=== PATIENT | male | born 1955 | race Caucasian/White ===

== ENCOUNTER 2022-03-12 22:36 | Inpatient (IN) | payer OTHER ==
[~2022-03-12] VITALS: Ht 188 cm; Wt 72.1 kg
[2022-03-12 22:41] VITALS: BP 176/85
[2022-03-12] MEDS ORDERED: TYLENOL325 M2 PEG (22:50)
[2022-03-12] MEDS ORDERED: BACLOFEN5 MG PEG (22:52)
[2022-03-12] MEDS ORDERED: ARANESP60 MCG/0.3 IJ (22:53)
[2022-03-12] MEDS ORDERED: BISACODYL10 MG R (22:55)
[2022-03-12] MEDS ORDERED: FLEET ENEMA 13133 ML R (22:56)
[2022-03-12] MEDS ORDERED: PEPCID20 MG PEG (23:04)
[2022-03-12] MEDS ORDERED: MIRALAX119 GM PEG (23:05)
[2022-03-12] MEDS ORDERED: MILK OF MA400 MG/5 M PEG (23:06)
[2022-03-12] MEDS ORDERED: LOPRESSOR25 MG PEG (23:07)
[2022-03-12] MEDS ORDERED: MAG-OXIDE200 MG PEG (23:08)
[2022-03-12] MEDS ORDERED: LIPITOR40 MG PEG (23:09)
[2022-03-12] MEDS ORDERED: IRON325 M1 PO (23:09)
[2022-03-12] MEDS ORDERED: Ipratropium Brom3 ML INH (23:10)
[2022-03-12] MEDS ORDERED: Peridex 473 ML473 ML PO (23:11)
[2022-03-12] MEDS ORDERED: PHOSLYRA667 MG/51 PEG (23:12)
[2022-03-12] MEDS ORDERED: PROMETHAZINE-P118 ML PEG (23:14)
[2022-03-12] MEDS ORDERED: SENNA8.6 MG PEG (23:15)
[2022-03-12] MEDS ORDERED: REMERON30 M1 PEG (23:15)
[2022-03-12] MEDS ORDERED: SIMETHICONE80 MG PEG (23:17)
[2022-03-12] MEDS ORDERED: THERATEARS 15 M15 ML OPH (23:18)
[2022-03-12] MEDS ORDERED: WELLBUTRIN SR150 MG PEG (23:18)
[2022-03-13] VITALS (11 sets, daily range): BP systolic 94–135; BP diastolic 51–74
[2022-03-13 01:43] LABS: ALKALINE PHOSPHATASE 108 U/L (45-117); BUN 31 mg/dl (7-24); CHLORIDE 107 mmol/L (98-107); CREATININE 0.76 mg/dL (0.70-1.30); POTASSIUM 4.5 mmol/L (3.5-5.1); SGOT/AST 29 IU/L (3-35); SGPT/ALT 38 U/L (12-78); SODIUM 136 mmol/L (136-145); TOTAL PROTEIN 9.4 gm/dL (6.4-8.2)
[2022-03-13 01:56] LABS: BASO % 0.3 % (0.0-1.0); EOS % 0.1 % (1.0-4.0); LYMPH # 1.5 10*3/uL (1.3-4.4); LYMPH % 12.4 % (27.0-41.0); MEAN CELL VOLUME 90.9 fl (80.0-94.0); MEAN CORPUSCULAR HGB 27.5 pg (27.0-31.0); MEAN CORPUSCULAR HGB CONC 30.3 g/dl (33.0-37.0); MEAN PLATELET VOLUME 11.1 fl (9.6-12.3); MONO # 0.9 10*3/uL (0.1-1.0); NEUT # 9.7 10*3/uL (2.3-7.9); NEUT % 79.5 % (47.0-73.0); PLATELET COUNT AUTOMATED 405 10*3/uL (130-400); RED BLOOD COUNT 4.29 10*6/uL (4.50-5.90); RED CELL DISTRI WIDTH 21.6 % (0-14.5); WHITE BLOOD COUNT 12.2 10*3/uL (4.8-10.8)
[2022-03-13 02:23] LABS: BILIRUBIN Negative (Negative); BLOOD 2+ (Negative); CLARITY Cloudy (Clear); COLOR Yellow (Yellow); GLUCOSE Negative (Negative); KETONE Negative (Negative); LEUKO ESTERASE 2+ (Negative); NITRITE Negative (Negative); SPECIFIC GRAVITY 1.015 (1.001-1.030); UROBILINOGEN 0.2 E.U./dl (0.0-1.0)
[2022-03-13 02:30] LABS: BACTERIA 2+; RBC 16-20 rbc/hpf (0-2); WBC 41-50 wbc/hpf (0-5)
[2022-03-14] VITALS: BP 117/60
[2022-03-14 04:01] VITALS: BP 105/55
[2022-03-14 06:05] LABS: BUN 29 mg/dl (7-24); CHLORIDE 109 mmol/L (98-107); SODIUM 142 mmol/L (136-145)
[2022-03-14 06:14] LABS: ALKALINE PHOSPHATASE 102 U/L (45-117); CREATININE 0.71 mg/dL (0.70-1.30); FREE T4 1.67 ng/dl (0.76-1.46); SGOT/AST 23 IU/L (3-35); SGPT/ALT 30 U/L (12-78); TOTAL PROTEIN 8.8 gm/dL (6.4-8.2)
[2022-03-14 06:29] LABS: POTASSIUM 3.2 mmol/L (3.5-5.1)
[2022-03-14 06:30] LABS: BASO % 0.2 % (0.0-1.0); EOS # 0.2 10*3/uL (0.0-0.4); EOS % 1.7 % (1.0-4.0); HEMATOCRIT 36.9 % (42.0-52.0); LYMPH # 0.8 10*3/uL (1.3-4.4); LYMPH % 6.7 % (27.0-41.0); MEAN CELL VOLUME 92.9 fl (80.0-94.0); MEAN CORPUSCULAR HGB 27.2 pg (27.0-31.0); MEAN CORPUSCULAR HGB CONC 29.3 g/dl (33.0-37.0); MEAN PLATELET VOLUME 11.7 fl (9.6-12.3); MONO # 0.6 10*3/uL (0.1-1.0); MONO % 4.6 % (3.0-9.0); NEUT # 10.3 10*3/uL (2.3-7.9); NEUT % 86.3 % (47.0-73.0); PLATELET COUNT AUTOMATED 452 10*3/uL (130-400); RED BLOOD COUNT 3.97 10*6/uL (4.50-5.90); RED CELL DISTRI WIDTH 21.8 % (0-14.5); WHITE BLOOD COUNT 11.9 10*3/uL (4.8-10.8)
[2022-03-14 08:00] VITALS: BP 152/76
[2022-03-14 12:00] VITALS: BP 124/75
[2022-03-14 16:50] VITALS: BP 148/64
[2022-03-14 20:00] VITALS: BP 128/67
[2022-03-15] VITALS: BP 120/66
[2022-03-15 04:00] VITALS: BP 130/68
[2022-03-15 07:20] LABS: ALKALINE PHOSPHATASE 104 U/L (45-117); BUN 27 mg/dl (7-24); CHLORIDE 107 mmol/L (98-107); CREATININE 0.82 mg/dL (0.70-1.30); POTASSIUM 3.6 mmol/L (3.5-5.1); SGOT/AST 21 IU/L (3-35); SGPT/ALT 27 U/L (12-78); SODIUM 141 mmol/L (136-145); TOTAL PROTEIN 8.3 gm/dL (6.4-8.2)
[2022-03-15 07:22] LABS: BASO % 0.4 % (0.0-1.0); EOS # 0.6 10*3/uL (0.0-0.4); EOS % 7.3 % (1.0-4.0); HEMATOCRIT 34.6 % (42.0-52.0); LYMPH # 1.1 10*3/uL (1.3-4.4); LYMPH % 13.6 % (27.0-41.0); MEAN CELL VOLUME 90.3 fl (80.0-94.0); MEAN CORPUSCULAR HGB 27.7 pg (27.0-31.0); MEAN CORPUSCULAR HGB CONC 30.6 g/dl (33.0-37.0); MEAN PLATELET VOLUME 11.2 fl (9.6-12.3); MONO # 0.8 10*3/uL (0.1-1.0); MONO % 9.4 % (3.0-9.0); NEUT # 5.5 10*3/uL (2.3-7.9); NEUT % 68.4 % (47.0-73.0); RED BLOOD COUNT 3.83 10*6/uL (4.50-5.90); RED CELL DISTRI WIDTH 21.6 % (0-14.5)
[2022-03-15 07:35] LABS: PLATELET COUNT AUTOMATED 458 10*3/uL (130-400)
[2022-03-15 08:00] VITALS: BP 120/57
[2022-03-15 12:00] VITALS: BP 101/56
[2022-03-15 16:00] VITALS: BP 100/47
[2022-03-15] MEDS ORDERED: VANCOMYCIN HYDRO1 GM IV (17:32)
[2022-03-15] MEDS ORDERED: PREMIERPRO RX500 M2 IV (17:32)
[2022-03-15 20:00] VITALS: BP 127/57
[2022-03-16] VITALS: BP 113/56
[2022-03-16 04:00] VITALS: BP 104/56
[2022-03-16 06:28] LABS: BASO % 0.5 % (0.0-1.0); EOS # 0.7 10*3/uL (0.0-0.4); EOS % 8.7 % (1.0-4.0); HEMATOCRIT 35.1 % (42.0-52.0); LYMPH # 1.2 10*3/uL (1.3-4.4); LYMPH % 15.2 % (27.0-41.0); MEAN CELL VOLUME 89.8 fl (80.0-94.0); MEAN CORPUSCULAR HGB 27.6 pg (27.0-31.0); MEAN CORPUSCULAR HGB CONC 30.8 g/dl (33.0-37.0); MEAN PLATELET VOLUME 10.9 fl (9.6-12.3); MONO # 0.7 10*3/uL (0.1-1.0); MONO % 8.8 % (3.0-9.0); NEUT # 5.1 10*3/uL (2.3-7.9); NEUT % 65.6 % (47.0-73.0); PLATELET COUNT AUTOMATED 445 10*3/uL (130-400); RED BLOOD COUNT 3.91 10*6/uL (4.50-5.90); RED CELL DISTRI WIDTH 21.6 % (0-14.5); WHITE BLOOD COUNT 7.7 10*3/uL (4.8-10.8)
[2022-03-16 07:06] LABS: BUN 24 mg/dl (7-24); CHLORIDE 107 mmol/L (98-107); CREATININE 0.73 mg/dL (0.70-1.30); POTASSIUM 3.8 mmol/L (3.5-5.1); SODIUM 138 mmol/L (136-145)
[2022-03-16 08:00] VITALS: BP 123/60
[2022-03-16 12:00] VITALS: BP 109/59
[2022-03-16 16:00] VITALS: BP 98/54
[2022-03-16 20:00] VITALS: BP 108/54
[2022-03-17] VITALS: BP 105/55
[2022-03-17 04:00] VITALS: BP 102/58
[2022-03-17 05:22] LABS: ALKALINE PHOSPHATASE 112 U/L (45-117); BUN 23 mg/dl (7-24); CHLORIDE 110 mmol/L (98-107); POTASSIUM 4.4 mmol/L (3.5-5.1); SGOT/AST 44 IU/L (3-35); SGPT/ALT 33 U/L (12-78); SODIUM 139 mmol/L (136-145); TOTAL PROTEIN 8.9 gm/dL (6.4-8.2)
[2022-03-17 06:26] LABS: BASO # 0.1 10*3/uL (0.0-0.1); BASO % 0.7 % (0.0-1.0); EOS # 0.9 10*3/uL (0.0-0.4); HEMATOCRIT 37.5 % (42.0-52.0); LYMPH # 2.3 10*3/uL (1.3-4.4); LYMPH % 27.1 % (27.0-41.0); MEAN CORPUSCULAR HGB 27.2 pg (27.0-31.0); MEAN CORPUSCULAR HGB CONC 29.9 g/dl (33.0-37.0); MEAN PLATELET VOLUME 11.3 fl (9.6-12.3); MONO # 0.9 10*3/uL (0.1-1.0); NEUT # 4.1 10*3/uL (2.3-7.9); NEUT % 48.3 % (47.0-73.0); PLATELET COUNT AUTOMATED 462 10*3/uL (130-400); RED BLOOD COUNT 4.12 10*6/uL (4.50-5.90); RED CELL DISTRI WIDTH 21.3 % (0-14.5); WHITE BLOOD COUNT 8.4 10*3/uL (4.8-10.8)
[2022-03-17 08:00] VITALS: BP 93/48
[2022-03-17 12:00] VITALS: BP 104/68
[2022-03-17] MEDS ORDERED: PREMIERPRO RX500 M2 IV (14:33)
[2022-03-17] MEDS ORDERED: AMERINET CHOICE1 GM IV (14:33)
[2022-03-17 16:00] VITALS: BP 121/78
[2022-03-17 20:00] VITALS: BP 115/74
[2022-03-18] VITALS: BP 100/57
[2022-03-18 04:00] VITALS: BP 148/81
[2022-03-18 05:08] LABS: BUN 25 mg/dl (7-24); CHLORIDE 106 mmol/L (98-107); CREATININE 0.81 mg/dL (0.70-1.30); SODIUM 135 mmol/L (136-145)
[2022-03-18 06:02] LABS: BASO # 0.1 10*3/uL (0.0-0.1); BASO % 0.5 % (0.0-1.0); EOS # 1.1 10*3/uL (0.0-0.4); HEMATOCRIT 38.8 % (42.0-52.0); LYMPH # 2.5 10*3/uL (1.3-4.4); LYMPH % 20.2 % (27.0-41.0); MEAN CELL VOLUME 92.4 fl (80.0-94.0); MEAN CORPUSCULAR HGB 27.6 pg (27.0-31.0); MEAN CORPUSCULAR HGB CONC 29.9 g/dl (33.0-37.0); MEAN PLATELET VOLUME 11.6 fl (9.6-12.3); MONO # 0.9 10*3/uL (0.1-1.0); MONO % 7.6 % (3.0-9.0); NEUT # 7.5 10*3/uL (2.3-7.9); NEUT % 60.6 % (47.0-73.0); PLATELET COUNT AUTOMATED 480 10*3/uL (130-400); RED CELL DISTRI WIDTH 21.1 % (0-14.5); WHITE BLOOD COUNT 12.3 10*3/uL (4.8-10.8)
[2022-03-18 08:00] VITALS: BP 143/68
[2022-03-18 11:52] VITALS: BP 108/61
[2022-03-18 16:00] VITALS: BP 96/58
[2022-03-18 20:00] VITALS: BP 109/61
[2022-03-19] VITALS (8 sets, daily range): BP systolic 83–115; BP diastolic 44–59
[2022-03-19 05:30] LABS: BUN 29 mg/dl (7-24); CHLORIDE 106 mmol/L (98-107); CREATININE 0.91 mg/dL (0.70-1.30); SODIUM 136 mmol/L (136-145)
[2022-03-19 06:23] LABS: BASO # 0.1 10*3/uL (0.0-0.1); BASO % 0.7 % (0.0-1.0); EOS # 1.1 10*3/uL (0.0-0.4); EOS % 8.4 % (1.0-4.0); HEMATOCRIT 36.5 % (42.0-52.0); LYMPH # 2.5 10*3/uL (1.3-4.4); LYMPH % 19.3 % (27.0-41.0); MEAN CELL VOLUME 92.2 fl (80.0-94.0); MEAN CORPUSCULAR HGB 28.3 pg (27.0-31.0); MEAN CORPUSCULAR HGB CONC 30.7 g/dl (33.0-37.0); MEAN PLATELET VOLUME 11.6 fl (9.6-12.3); MONO # 0.8 10*3/uL (0.1-1.0); MONO % 6.2 % (3.0-9.0); NEUT # 8.3 10*3/uL (2.3-7.9); NEUT % 63.8 % (47.0-73.0); PLATELET COUNT AUTOMATED 455 10*3/uL (130-400); RED BLOOD COUNT 3.96 10*6/uL (4.50-5.90)
[2022-03-20 04:00] VITALS: BP 92/52
[2022-03-20 05:22] LABS: BUN 33 mg/dl (7-24); CHLORIDE 106 mmol/L (98-107); CREATININE 0.92 mg/dL (0.70-1.30); POTASSIUM 3.7 mmol/L (3.5-5.1); SODIUM 137 mmol/L (136-145)
[2022-03-20 06:19] LABS: BASO # 0.1 10*3/uL (0.0-0.1); BASO % 0.6 % (0.0-1.0); EOS # 1.2 10*3/uL (0.0-0.4); EOS % 8.3 % (1.0-4.0); HEMATOCRIT 36.7 % (42.0-52.0); LYMPH # 3.3 10*3/uL (1.3-4.4); LYMPH % 22.1 % (27.0-41.0); MEAN CELL VOLUME 91.5 fl (80.0-94.0); MEAN CORPUSCULAR HGB 28.2 pg (27.0-31.0); MEAN CORPUSCULAR HGB CONC 30.8 g/dl (33.0-37.0); MEAN PLATELET VOLUME 11.7 fl (9.6-12.3); MONO # 1.1 10*3/uL (0.1-1.0); MONO % 7.1 % (3.0-9.0); PLATELET COUNT AUTOMATED 488 10*3/uL (130-400); RED BLOOD COUNT 4.01 10*6/uL (4.50-5.90)
[2022-03-20 08:00] VITALS: BP 104/51
== END 2022-03-20 11:15 | DRG 981 ==
LOC: ED 22:36 → ICCU 03-13 07:48 → EDHOLD 03-13 07:48 → ICCU 03-13 09:16
PROVIDERS: Emergency Medicine; Internal Medicine; ADMIT Family Medicine; ATTEND Family Medicine
PROC: 5A1955Z Respiratory Ventilation, Greater than 96 Consecutive Hours (ICD-10-PCS; 2022-03-13)
PROC: 0QB10ZZ Excision of Sacrum, Open Approach (ICD-10-PCS; principal; 2022-03-14)
PROC: 0QB30ZZ Excision of Left Pelvic Bone, Open Approach (ICD-10-PCS; 2022-03-14)
PROC: 02HV33Z Insertion of Infusion Device into Superior Vena Cava, Percutaneous Approach (ICD-10-PCS; 2022-03-17)
PROC: B548ZZA Ultrasonography of Superior Vena Cava, Guidance (ICD-10-PCS; 2022-03-17)
DX: T83.511A Infection and inflammatory reaction due to indwelling urethral catheter, initial encounter (principal); A41.9 Sepsis, unspecified organism; L89.154 Pressure ulcer of sacral region, stage 4; J69.0 Pneumonitis due to inhalation of food and vomit; E43 Unspecified severe protein-calorie malnutrition; M46.28 Osteomyelitis of vertebra, sacral and sacrococcygeal region; J96.10 Chronic respiratory failure, unspecified whether with hypoxia or hypercapnia; J90 Pleural effusion, not elsewhere classified; N20.1 Calculus of ureter; Z99.11 Dependence on respirator [ventilator] status; N39.0 Urinary tract infection, site not specified; K27.9 Peptic ulcer, site unspecified, unspecified as acute or chronic, without hemorrhage or perforation; L89.150 Pressure ulcer of sacral region, unstageable; Z20.822 Contact with and (suspected) exposure to COVID-19; Y83.8 Other surgical procedures as the cause of abnormal reaction of the patient, or of later complication, without mention of misadventure at the time of the procedure; D64.9 Anemia, unspecified; N40.0 Benign prostatic hyperplasia without lower urinary tract symptoms; N31.9 Neuromuscular dysfunction of bladder, unspecified; D75.839 Thrombocytosis, unspecified; R73.9 Hyperglycemia, unspecified; E55.9 Vitamin D deficiency, unspecified; G35 Multiple sclerosis; E78.5 Hyperlipidemia, unspecified; N18.9 Chronic kidney disease, unspecified; I12.9 Hypertensive chronic kidney disease with stage 1 through stage 4 chronic kidney disease, or unspecified chronic kidney disease; F32.A Depression, unspecified; I25.10 Atherosclerotic heart disease of native coronary artery without angina pectoris; K21.9 Gastro-esophageal reflux disease without esophagitis; K62.89 Other specified diseases of anus and rectum; Y92.89 Other specified places as the place of occurrence of the external cause; Z93.0 Tracheostomy status; Z88.1 Allergy status to other antibiotic agents; Z88.8 Allergy status to other drugs, medicaments and biological substances; Z88.5 Allergy status to narcotic agent; Z79.1 Long term (current) use of non-steroidal anti-inflammatories (NSAID); Z79.899 Other long term (current) drug therapy; Z93.6 Other artificial openings of urinary tract status; Z82.0 Family history of epilepsy and other diseases of the nervous system

== ENCOUNTER 2022-04-25 02:27 | Emergency (ER) | payer OTHER ==
[~2022-04-25] VITALS: Ht 162.5 cm; Wt 68.0 kg
[~2022-04-25 02:27] MED LIST: AMERINET CHOICE1 GM IV; ARANESP60 MCG/0.3 IJ; BACLOFEN5 MG PEG; BISACODYL10 MG R; FLEET ENEMA 13133 ML R; IRON325 M1 PO; Ipratropium Brom3 ML INH; LIPITOR40 MG PEG; LOPRESSOR25 MG PEG; MAG-OXIDE200 MG PEG; MILK OF MA400 MG/5 M PEG; MIRALAX119 GM PEG; PEPCID20 MG PEG; PHOSLYRA667 MG/51 PEG; PREMIERPRO RX500 M2 IV; PROMETHAZINE-P118 ML PEG; Peridex 473 ML473 ML PO; REMERON30 M1 PEG; SENNA8.6 MG PEG; SIMETHICONE80 MG PEG; THERATEARS 15 M15 ML OPH; TYLENOL325 M2 PEG; VANCOMYCIN HYDRO1 GM IV; WELLBUTRIN SR150 MG PEG
[2022-04-25 02:59] LABS: HEMATOCRIT 41.1 % (42.0-52.0); MEAN CELL VOLUME 98.8 fl (80.0-94.0); MEAN CORPUSCULAR HGB 28.1 pg (27.0-31.0); MEAN CORPUSCULAR HGB CONC 28.5 g/dl (33.0-37.0); MEAN PLATELET VOLUME 11.6 fl (9.6-12.3); PLATELET COUNT AUTOMATED 273 10*3/uL (130-400); RED BLOOD COUNT 4.16 10*6/uL (4.50-5.90); RED CELL DISTRI WIDTH 19.8 % (0-14.5); WHITE BLOOD COUNT 31.7 10*3/uL (4.8-10.8)
[2022-04-25 03:00] LABS: MANUAL DIFF REFLEX YES
[2022-04-25 03:34] LABS: PLATELET SUFFICIENCY NORMAL (NORMAL); TOTAL CELLS COUNTED 100 #CELLS
[2022-04-25 03:45] LABS: ALKALINE PHOSPHATASE 149 U/L (45-117); BUN 49 mg/dl (7-24); CHLORIDE 100 mmol/L (98-107); CREATININE 0.78 mg/dL (0.70-1.30); LIPASE 419 U/L (73-393); POTASSIUM 5.8 mmol/L (3.5-5.1); SGOT/AST 39 IU/L (3-35); SGPT/ALT 78 U/L (12-78); SODIUM 138 mmol/L (136-145); TOTAL PROTEIN 9.3 gm/dL (6.4-8.2)
[2022-04-25 05:31] LABS: BILIRUBIN Negative (Negative); BLOOD 2+ (Negative); CLARITY Cloudy (Clear); COLOR Yellow (Yellow); GLUCOSE Negative (Negative); KETONE Negative (Negative); LEUKO ESTERASE 2+ (Negative); NITRITE Negative (Negative); SPECIFIC GRAVITY 1.015 (1.001-1.030); UROBILINOGEN 0.2 E.U./dl (0.0-1.0)
[2022-04-25 05:58] LABS: BACTERIA 1+; CALCIUM OXALATE CRYSTALS 2+; RBC TNTC rbc/hpf (0-2); WBC 21-30 wbc/hpf (0-5); YEAST 4+
== END 2022-04-25 10:39 | disposition short-term general hospital (02) ==
LOC: ED 02:27
PROVIDERS: Emergency Medicine
DX: A41.9 Sepsis, unspecified organism (principal); Z20.822 Contact with and (suspected) exposure to COVID-19; N39.0 Urinary tract infection, site not specified; J69.0 Pneumonitis due to inhalation of food and vomit; R41.82 Altered mental status, unspecified; N20.1 Calculus of ureter; Z88.1 Allergy status to other antibiotic agents; Z88.8 Allergy status to other drugs, medicaments and biological substances; Z79.899 Other long term (current) drug therapy

== ENCOUNTER 2022-07-05 12:53 | Emergency (ER) | payer OTHER, MEDICAID ==
[~2022-07-05] VITALS: Wt 72.1 kg
[2022-07-05 13:20] LABS: BILIRUBIN Negative (Negative); BLOOD 2+ (Negative); CLARITY Turbid (Clear); COLOR Yellow (Yellow); GLUCOSE Negative (Negative); KETONE Negative (Negative); LEUKO ESTERASE 3+ (Negative); NITRITE Negative (Negative); PH 6.5 (4.5-8.0); UROBILINOGEN 0.2 E.U./dl (0.0-1.0)
[2022-07-05 13:35] LABS: BASO % 0.3 % (0.0-1.0); EOS # 0.1 10*3/uL (0.0-0.4); EOS % 0.4 % (1.0-4.0); HEMATOCRIT 41.2 % (42.0-52.0); LYMPH # 1.6 10*3/uL (1.3-4.4); LYMPH % 11.5 % (27.0-41.0); MEAN CELL VOLUME 93.4 fl (80.0-94.0); MEAN CORPUSCULAR HGB 27.4 pg (27.0-31.0); MEAN CORPUSCULAR HGB CONC 29.4 g/dl (33.0-37.0); MEAN PLATELET VOLUME 11.5 fl (9.6-12.3); MONO # 0.9 10*3/uL (0.1-1.0); MONO % 6.1 % (3.0-9.0); NEUT # 11.5 10*3/uL (2.3-7.9); NEUT % 81.3 % (47.0-73.0); PLATELET COUNT AUTOMATED 513 10*3/uL (130-400); RED BLOOD COUNT 4.41 10*6/uL (4.50-5.90); RED CELL DISTRI WIDTH 18.6 % (0-14.5); WHITE BLOOD COUNT 14.2 10*3/uL (4.8-10.8)
[2022-07-05 13:41] LABS: BACTERIA 3+; WBC TNTC wbc/hpf (0-5)
[2022-07-05 13:52] LABS: ALKALINE PHOSPHATASE 106 U/L (45-117); BUN 43 mg/dl (7-24); CHLORIDE 102 mmol/L (98-107); CREATININE 0.95 mg/dL (0.70-1.30); POTASSIUM 4.1 mmol/L (3.5-5.1); SGOT/AST 24 IU/L (3-35); SGPT/ALT 39 U/L (12-78); SODIUM 136 mmol/L (136-145); TOTAL PROTEIN 10.6 gm/dL (6.4-8.2)
== END 2022-07-05 17:40 | disposition home or self-care (01) ==
LOC: ED 12:53
PROVIDERS: Internal Medicine
DX: N39.0 Urinary tract infection, site not specified (principal); Z88.1 Allergy status to other antibiotic agents; Z88.5 Allergy status to narcotic agent

== ENCOUNTER 2022-07-19 20:19 | Inpatient (IN) | payer OTHER, MEDICAID ==
[~2022-07-19] VITALS: Ht 167.6 cm; Wt 77.1 kg
[2022-07-19 20:42] VITALS: BP 108/73
[2022-07-19 21:02] LABS: HEMATOCRIT 42.3 % (42.0-52.0); MEAN CELL VOLUME 98.4 fl (80.0-94.0); MEAN CORPUSCULAR HGB 29.1 pg (27.0-31.0); MEAN CORPUSCULAR HGB CONC 29.6 g/dl (33.0-37.0); PLATELET COUNT AUTOMATED 373 10*3/uL (130-400); RED CELL DISTRI WIDTH 20.1 % (0-14.5)
[2022-07-19 21:03] LABS: MANUAL DIFF REFLEX YES
[2022-07-19 21:23] LABS: ALKALINE PHOSPHATASE 105 U/L (45-117); BUN 43 mg/dl (7-24); CHLORIDE 100 mmol/L (98-107); CREATININE 0.89 mg/dL (0.70-1.30); POTASSIUM 5.5 mmol/L (3.5-5.1); SGOT/AST 29 IU/L (3-35); SGPT/ALT 49 U/L (12-78); SODIUM 134 mmol/L (136-145); TOTAL PROTEIN 10.3 gm/dL (6.4-8.2)
[2022-07-19 21:31] LABS: PLATELET SUFFICIENCY NORMAL (NORMAL); TOTAL CELLS COUNTED 100 #CELLS
[2022-07-19 21:33] LABS: ROULEAUX MODERATE
[2022-07-19 21:40] VITALS: BP 99/56
[2022-07-19 22:26] VITALS: BP 104/69
[2022-07-19 23:10] VITALS: BP 118/62
[2022-07-19] MEDS ORDERED: PROSCAR5 M1 PO (23:45)
[2022-07-19] MEDS ORDERED: PERCOCET 5-3251 EACH PO (23:49)
[2022-07-19] MEDS ORDERED: ARTIFICIAL TEAR1511 OP (23:51)
[2022-07-19] MEDS ORDERED: REGLAN 5MG/5 MG/5 ML PO (23:58)
[2022-07-20] MEDS ORDERED: SODIUM BICARBO325 M1 PO
[2022-07-20] MEDS ORDERED: ALDACTONE25 M1 PO (00:01)
[2022-07-20] MEDS ORDERED: TAB-A-VITE MUL1 EACH PO (00:02)
[2022-07-20] MEDS ORDERED: TAMSULOSIN HCL0.4 MG PO (00:04)
[2022-07-20 00:10] LABS: BILIRUBIN Negative (Negative); BLOOD 1+ (Negative); CLARITY Cloudy (Clear); COLOR Yellow (Yellow); GLUCOSE Negative (Negative); KETONE Negative (Negative); LEUKO ESTERASE 3+ (Negative); NITRITE Positive (Negative); PH 7.5 (4.5-8.0); SPECIFIC GRAVITY 1.015 (1.001-1.030); UROBILINOGEN 0.2 E.U./dl (0.0-1.0)
[2022-07-20 00:38] LABS: BACTERIA 4+; WBC TNTC wbc/hpf (0-5)
[2022-07-20 04:00] VITALS: BP 94/58
[2022-07-20 05:07] LABS: ALKALINE PHOSPHATASE 85 U/L (45-117); BUN 39 mg/dl (7-24); CHLORIDE 105 mmol/L (98-107); CREATININE 0.76 mg/dL (0.70-1.30); POTASSIUM 4.2 mmol/L (3.5-5.1); SGOT/AST 20 IU/L (3-35); SGPT/ALT 39 U/L (12-78); SODIUM 140 mmol/L (136-145); TOTAL PROTEIN 9.3 gm/dL (6.4-8.2)
[2022-07-20 06:11] LABS: BASO % 0.2 % (0.0-1.0); EOS % 0.1 % (1.0-4.0); HEMATOCRIT 36.4 % (42.0-52.0); LYMPH % 5.4 % (27.0-41.0); MEAN CELL VOLUME 99.5 fl (80.0-94.0); MEAN CORPUSCULAR HGB 28.1 pg (27.0-31.0); MEAN CORPUSCULAR HGB CONC 28.3 g/dl (33.0-37.0); MEAN PLATELET VOLUME 11.5 fl (9.6-12.3); MONO # 1.2 10*3/uL (0.1-1.0); MONO % 6.6 % (3.0-9.0); NEUT # 16.5 10*3/uL (2.3-7.9); NEUT % 87.4 % (47.0-73.0); PLATELET COUNT AUTOMATED 375 10*3/uL (130-400); RED BLOOD COUNT 3.66 10*6/uL (4.50-5.90); RED CELL DISTRI WIDTH 19.9 % (0-14.5); WHITE BLOOD COUNT 18.8 10*3/uL (4.8-10.8)
[2022-07-20 08:00] VITALS: BP 102/50
[2022-07-20 12:00] VITALS: BP 94/50
[2022-07-20 16:00] VITALS: BP 99/54
[2022-07-20 20:00] VITALS: BP 97/52
[2022-07-21] VITALS: BP 97/50
[2022-07-21 04:00] VITALS: BP 107/53
[2022-07-21 05:33] LABS: BUN 34 mg/dl (7-24); CHLORIDE 111 mmol/L (98-107); CREATININE 0.74 mg/dL (0.70-1.30); POTASSIUM 4.1 mmol/L (3.5-5.1); SODIUM 141 mmol/L (136-145)
[2022-07-21 05:37] LABS: CPK 335 U/L (39-308)
[2022-07-21 06:54] LABS: BASO % 0.4 % (0.0-1.0); EOS # 0.2 10*3/uL (0.0-0.4); EOS % 1.9 % (1.0-4.0); HEMATOCRIT 31.5 % (42.0-52.0); LYMPH % 10.7 % (27.0-41.0); MEAN CELL VOLUME 96.6 fl (80.0-94.0); MEAN CORPUSCULAR HGB 28.5 pg (27.0-31.0); MEAN CORPUSCULAR HGB CONC 29.5 g/dl (33.0-37.0); MEAN PLATELET VOLUME 10.6 fl (9.6-12.3); MONO # 0.9 10*3/uL (0.1-1.0); MONO % 9.7 % (3.0-9.0); NEUT # 7.3 10*3/uL (2.3-7.9); PLATELET COUNT AUTOMATED 276 10*3/uL (130-400); RED BLOOD COUNT 3.26 10*6/uL (4.50-5.90); RED CELL DISTRI WIDTH 20.5 % (0-14.5); WHITE BLOOD COUNT 9.5 10*3/uL (4.8-10.8)
[2022-07-21 08:00] VITALS: BP 110/60
[2022-07-21 12:00] VITALS: BP 119/57
[2022-07-21 16:00] VITALS: BP 122/64
[2022-07-21 20:00] VITALS: BP 105/57
[2022-07-22] VITALS: BP 113/59
[2022-07-22 04:00] VITALS: BP 109/59
[2022-07-22 08:00] VITALS: BP 113/67
[2022-07-22 08:32] LABS: BASO % 0.2 % (0.0-1.0); EOS # 0.5 10*3/uL (0.0-0.4); EOS % 4.9 % (1.0-4.0); HEMATOCRIT 33.1 % (42.0-52.0); LYMPH % 8.9 % (27.0-41.0); MEAN CELL VOLUME 96.5 fl (80.0-94.0); MEAN CORPUSCULAR HGB 28.6 pg (27.0-31.0); MEAN CORPUSCULAR HGB CONC 29.6 g/dl (33.0-37.0); MEAN PLATELET VOLUME 11.1 fl (9.6-12.3); NEUT # 8.5 10*3/uL (2.3-7.9); NEUT % 76.5 % (47.0-73.0); PLATELET COUNT AUTOMATED 285 10*3/uL (130-400); RED BLOOD COUNT 3.43 10*6/uL (4.50-5.90); RED CELL DISTRI WIDTH 20.7 % (0-14.5); WHITE BLOOD COUNT 11.1 10*3/uL (4.8-10.8)
[2022-07-22 09:08] LABS: BUN 26 mg/dl (7-24); CHLORIDE 108 mmol/L (98-107); CREATININE 0.72 mg/dL (0.70-1.30); POTASSIUM 3.9 mmol/L (3.5-5.1); SODIUM 141 mmol/L (136-145)
[2022-07-22 12:00] VITALS: BP 124/60
[2022-07-22] MEDS ORDERED: VANC1PIG IV (15:52)
[2022-07-22] MEDS ORDERED: PREMIERPRO RX ME1 GM IV (15:52)
[2022-07-22] MEDS ORDERED: ZITHROMAX500 MG PO (15:52)
[2022-07-22 16:00] VITALS: BP 120/63
[2022-07-22 20:00] VITALS: BP 110/54
[2022-07-23] VITALS: BP 111/58
[2022-07-23 04:00] VITALS: BP 102/58
[2022-07-23 07:40] LABS: BASO % 0.2 % (0.0-1.0); EOS # 0.7 10*3/uL (0.0-0.4); EOS % 7.6 % (1.0-4.0); HEMATOCRIT 32.4 % (42.0-52.0); LYMPH # 1.1 10*3/uL (1.3-4.4); LYMPH % 12.2 % (27.0-41.0); MEAN CELL VOLUME 94.7 fl (80.0-94.0); MEAN CORPUSCULAR HGB 28.7 pg (27.0-31.0); MEAN CORPUSCULAR HGB CONC 30.2 g/dl (33.0-37.0); MEAN PLATELET VOLUME 10.7 fl (9.6-12.3); MONO # 0.9 10*3/uL (0.1-1.0); MONO % 9.9 % (3.0-9.0); NEUT # 6.5 10*3/uL (2.3-7.9); NEUT % 69.8 % (47.0-73.0); PLATELET COUNT AUTOMATED 263 10*3/uL (130-400); RED BLOOD COUNT 3.42 10*6/uL (4.50-5.90); RED CELL DISTRI WIDTH 20.6 % (0-14.5); WHITE BLOOD COUNT 9.3 10*3/uL (4.8-10.8)
[2022-07-23 07:56] LABS: BUN 23 mg/dl (7-24); CHLORIDE 108 mmol/L (98-107); CREATININE 0.69 mg/dL (0.70-1.30); SODIUM 141 mmol/L (136-145)
[2022-07-23 08:00] VITALS: BP 102/58
== END 2022-07-23 09:57 | disposition short-term general hospital (02) | DRG 698 ==
LOC: ED 20:19 → ICCU 22:01
PROVIDERS: Internal Medicine; Student in an Organized Health Care Education/Training Program; ADMIT Family Medicine; ATTEND Family Medicine
PROC: 5A1945Z Respiratory Ventilation, 24-96 Consecutive Hours (ICD-10-PCS; principal; 2022-07-19)
DX: T83.511A Infection and inflammatory reaction due to indwelling urethral catheter, initial encounter (principal); A41.9 Sepsis, unspecified organism; E43 Unspecified severe protein-calorie malnutrition; L89.513 Pressure ulcer of right ankle, stage 3; L89.324 Pressure ulcer of left buttock, stage 4; L89.154 Pressure ulcer of sacral region, stage 4; J69.0 Pneumonitis due to inhalation of food and vomit; J96.21 Acute and chronic respiratory failure with hypoxia; R65.20 Severe sepsis without septic shock; M46.28 Osteomyelitis of vertebra, sacral and sacrococcygeal region; N20.1 Calculus of ureter; J95.851 Ventilator associated pneumonia; E87.20 Acidosis, unspecified; N17.9 Acute kidney failure, unspecified; Z99.11 Dependence on respirator [ventilator] status; N39.0 Urinary tract infection, site not specified; Z20.822 Contact with and (suspected) exposure to COVID-19; L89.610 Pressure ulcer of right heel, unstageable; L89.522 Pressure ulcer of left ankle, stage 2; N18.9 Chronic kidney disease, unspecified; F32.9 Major depressive disorder, single episode, unspecified; K21.9 Gastro-esophageal reflux disease without esophagitis; E78.5 Hyperlipidemia, unspecified; I25.10 Atherosclerotic heart disease of native coronary artery without angina pectoris; D64.9 Anemia, unspecified; R73.9 Hyperglycemia, unspecified; E87.8 Other disorders of electrolyte and fluid balance, not elsewhere classified; D75.839 Thrombocytosis, unspecified; I12.9 Hypertensive chronic kidney disease with stage 1 through stage 4 chronic kidney disease, or unspecified chronic kidney disease; N40.1 Benign prostatic hyperplasia with lower urinary tract symptoms; T83.510S Infection and inflammatory reaction due to cystostomy catheter, sequela; Z88.1 Allergy status to other antibiotic agents; Z88.8 Allergy status to other drugs, medicaments and biological substances; Z93.1 Gastrostomy status; Z93.6 Other artificial openings of urinary tract status; Z93.0 Tracheostomy status; Z68.27 Body mass index [BMI] 27.0-27.9, adult